=== PATIENT | male | born 1970 | race Asian ===

== ENCOUNTER 2017-02-16 10:10 | Emergency (ER) | payer MEDICARE, OTHER ==
[~2017-02-16] VITALS: Ht 170.2 cm; Wt 125.0 kg
[~2017-02-16 10:10] MED LIST: MORP30CA14; OXYC-307
[2017-02-16 10:52] LABS: HEMOGLOBIN 15.9 g/dL (13.7-18.0)
[2017-02-16 11:04] LABS: BLOOD UREA NITROGEN 10 mg/dL (7-18)
[2017-02-16 11:55] VITALS: BP 109/75
== END 2017-02-16 12:37 | disposition home or self-care (01) ==
LOC: ED 10:59
DX: R31.9 Hematuria, unspecified (principal)
CPT/HCPCS: 36415; 80048; 81001; 82040; 83605; 85025; 99284

== ENCOUNTER → 2017-03-15 | Outpatient (CLI) | payer OTHER ==
[~2017-03-15] MED LIST changes: +OMNIPAQUE 350 MG/ML, 150 ML BOTTLE ONE
== END | disposition home or self-care (01) ==
LOC: CFH 11:54
PROVIDERS: ATTEND Student in an Organized Health Care Education/Training Program
DX: N20.0 Calculus of kidney (principal); J47.9 Bronchiectasis, uncomplicated; M47.816 Spondylosis without myelopathy or radiculopathy, lumbar region
CPT/HCPCS: 74178; Q9967

== ENCOUNTER 2017-05-27 05:04 | Emergency (ER) | payer OTHER ==
[~2017-05-27] VITALS: Ht 177.8 cm; Wt 97.2 kg
[~2017-05-27 05:04] MED LIST changes: -OMNIPAQUE 350 MG/ML, 150 ML BOTTLE ONE
[2017-05-27 05:06] VITALS: BP 113/79
== END 2017-05-27 05:29 | disposition left against medical advice (07) ==
LOC: ED 05:23
DX: R06.02 Shortness of breath (principal); Z53.21 Procedure and treatment not carried out due to patient leaving prior to being seen by health care provider
CPT/HCPCS: 93005